=== PATIENT | male | born 1985 | race Caucasian/White ===

== ENCOUNTER 2021-08-22 01:42 | Emergency (ER) | payer BC ==
[2021-08-22] MEDS ORDERED: Sulfamethoxazole/Trimethoprim 800-160 MG Tab PO STA (03:22)
[2021-08-22] MEDS ORDERED: Ketorolac 30 MG/ML SDV IM STA (03:25)
== END 2021-08-22 03:39 | disposition home or self-care (01) ==
LOC: MW.ED 01:42
DX: L08.89 Other specified local infections of the skin and subcutaneous tissue (principal); Z88.0 Allergy status to penicillin
CPT/HCPCS: 96372; 99283; A9270; J1885